=== PATIENT | male | born 1970 | race Caucasian/White ===

== ENCOUNTER → 2020-10-30 16:51 | Outpatient (CLI) | payer OTHER, SELFPAY ==
[2020-10-30 18:16] LABS: PSA,Total - Annual Screen 0.61 ng/mL (0.00-4.00)
== END ==
PROVIDERS: PCP Family Medicine; Referring Provider Family Medicine; Visit Provider Family Medicine
DX: R35.0 Frequency of micturition (principal)
CPT/HCPCS: 36415; 84153; G0103

== ENCOUNTER → 2021-08-26 16:49 | Outpatient (CLI) | payer OTHER, SELFPAY ==
--- NOTE | 2021-08-26 16:58 | RAD_ITS ---
STUDY: X-RAY - LUMBAR SPINE REASON FOR EXAM: Male, 50 years old. Low back pain TECHNIQUE: 5 view(s) of the lumbar spine were obtained. COMPARISON: None FINDINGS: Normal lumbar lordosis. There is a mild dextroscoliosis of the lumbar spine. There is a normal alignment of the vertebrae in the lateral view. There is multilevel endplate spondylosis of the lumbar vertebrae. There is multi-level degenerative disc disease with multi-level disc space narrowing. There is no demonstrated fracture. The soft tissue structures are unremarkable. RAD/L/S Spine Min 4 Views IMPRESSION: Degenerative changes of the spine, as detailed above. No demonstrated fracture Mild right dextroscoliosis Electronically Signed: Mariano Desouza MD at 17:54 EDT , Service support ,
== END ==
PROVIDERS: PCP Family Medicine; Referring Provider Chiropractor; Visit Provider Chiropractor
DX: S39.012A Strain of muscle, fascia and tendon of lower back, initial encounter (principal); X58.XXXA Exposure to other specified factors, initial encounter; M47.816 Spondylosis without myelopathy or radiculopathy, lumbar region
CPT/HCPCS: 72110

== ENCOUNTER 2023-03-27 07:59 | Day surgery (SDC) | payer OTHER, SELFPAY ==
[2023-03-27 08:27] VITALS: BP 121/68; PULSE 66; RESP 18; TEMP 37.2; O2SAT 98; BMI 28.0
[2023-03-27] MEDS: Lactated Ringers 1,000 ML 15 ML IV (08:34)
--- NOTE | 2023-03-27 08:46 | PCM.HP.STD ---
[facility] - General General Date of Service: 03/27/23 Chief Complaint: Screening for intestinal cancer HPI Narrative SHYLA MARTIN, is a 52 M who presents who presents for screening colonoscopy today. He has not had a previous one. He is asymptomatic. No family history of colon cancer. He otherwise enjoys good health. No bright red blood per rectum or melena. [facility] Medical History (Updated 03/23/23 @ 14:23 by Mica Jay) Back pain History of pain when walking History of trigger finger Non-smoker Wears contact lenses Home Medications cholecalciferol (vitamin D3) 125 mcg (5,000 unit) capsule 125 mcg PO DAILY 01/30/23 [History Last Taken Unknown] multivitamin 1 tab PO DAILY 01/30/23 [History Last Taken Unknown] ascorbic acid (vitamin C) 500 mg tablet (Vitamin C) 500 mg PO DAILY 03/23/23 [History Last Taken Unknown] Allergy/AdvReac Type Severity Reaction Status Date / Time No Known Allergies Allergy Unverified 03/27/23 08:26 Surgical History (Updated 03/23/23 @ 14:23 by Mica Jay) History of carpal tunnel surgery of left wrist History of carpal tunnel surgery of right wrist Social History (Updated 01/30/23 @ 11:14 by Gisselle Lombardi) household members: spouse current occupational status: employed Smoking Status: Never smoker ROS Constitutional Constitutional: Reports systems reviewed and no addt'l complaints, except as documented Cardiovascular Cardiovascular: Denies chest pain Respiratory/Chest Respiratory/Chest: Denies shortness of breath at rest Gastrointestinal Gastrointestinal: Denies abdominal pain, change in bowel habits, hematochezia or melena Vital Signs Vital Signs Vital Signs: 03/27/23 08:27 03/27/23 08:27 Temperature 98.9 F Temperature Source Temporal Pulse Rate 66 Respiratory Rate 18 Respiratory Pattern Normal Blood Pressure 121/68 H Blood Pressure Mean 85 Blood Pressure Source Monitor Blood Pressure Position Semi-Fowlers Blood Pressure Location Right Arm Pulse Ox 98 Oxygen Delivery Method Room Air Weight Weight: 224 lb 10.417 oz Body Mass Index (BMI) 28.0 Physical Exam Const alert, oriented x3 and no apparent distress General Appearance: cooperative and comfortable Eyes General Eye: normal appearance of both eyes Neck General: normal visual inspection Chest inspection of chest normal Resp Effort and Inspection: able to speak in complete sentences and symmetric chest movement Auscultation: clear to auscultation bilaterally Cardio regular rate and regular rhythm GI soft to palpation, non-tender and non-distended Extremity no calf tenderness Neuro oriented x3 Psych thought process normal Assessment & Plan Assessment/Plan (1) Encounter for screening for malignant neoplasm of colon: PLAN: The patient presents for screening colonoscopy today. Presents via open access. He is aware of the technique, benefit, risk, alternatives. He has had an opportunity to ask and have questions answered. We will proceed as noted. Carroll Thakur M.D., F.A.C.S.
[2023-03-27 10:30] VITALS: BP 119/74; BP 121/68; PULSE 61; RESP 16; TEMP 36.9; O2SAT 97
--- NOTE | 2023-03-27 10:31 | OP.COLON_ITS ---
Patient Name: Luisito Davis Procedure Date: 03/27/2023 10:03 AM Date of : 1970 Age: 52 Procedure: Colonoscopy Indications: Screening for colorectal malignant neoplasm Providers: Carroll Thakur MD Medicines: See the Anesthesia note for documentation of the administered medications Patient Profile: Last Colonoscopy: none. The patient's first colonoscopy is today. Complications: No immediate complications. Procedure: Pre-Anesthesia Assessment: - Prior to the procedure, a History and Physical was performed, and patient medications and allergies were reviewed. The patient's tolerance of previous anesthesia was also reviewed. The risks and benefits of the procedure and the sedation options and risks were discussed with the patient. All questions were answered, and informed consent was obtained. Prior Anticoagulants: The patient has taken no previous anticoagulant or antiplatelet agents. ASA Grade Assessment: II - A patient with mild systemic disease. After reviewing the risks and benefits, the patient was deemed in satisfactory condition to undergo the procedure. After I obtained informed consent, the scope was passed under direct vision. Throughout the procedure, the patient's blood pressure, pulse, and oxygen saturations were monitored continuously. The Colonoscope was introduced through the anus and advanced to the cecum, identified by appendiceal orifice and ileocecal valve. The colonoscopy was performed without difficulty. The patient tolerated the procedure well. The quality of the bowel preparation was good. The ileocecal valve and the appendiceal orifice were photographed. Scope In: 10:10:47 AM Scope Withdrawal Time 0 hours 10 minutes 6 seconds Scope Out: 10:26:28 AM Total Procedure Duration Time 0 hours 15 minutes 41 seconds Findings: The digital rectal exam findings include thrombosed external hemorrhoids, non-thrombosed internal hemorrhoids and internal hemorrhoids that prolapse with straining, but spontaneously regress to the resting position (Grade II). Pertinent negatives include normal prostate (size, shape, and consistency). Multiple diverticula were found in the sigmoid colon. The exam was otherwise without abnormality. Impression: - Thrombosed external hemorrhoids, non-thrombosed internal hemorrhoids and internal hemorrhoids that prolapse with straining, but spontaneously regress to the resting position (Grade II) found on digital rectal exam. - Diverticulosis in the sigmoid colon. - The examination was otherwise normal. - No specimens collected. Recommendation: - Discharge patient to home. - Resume previous diet. - Continue present medications. - Repeat colonoscopy in 10 years for screening purposes. Procedure Code(s): --- Professional --- 74371, Colonoscopy, flexible; diagnostic, including collection of specimen(s) by brushing or washing, when performed (separate procedure) Diagnosis Code(s): --- Professional --- Z12.11, Encounter for screening for malignant neoplasm of colon K64.1, Second degree hemorrhoids K64.5, Perianal venous thrombosis K57.30, Diverticulosis of large intestine without perforation or abscess without bleeding CPT copyright 2017 [employer]. All rights reserved. The codes documented in this report are preliminary and upon flower buncher or picker review may be revised to meet current compliance requirements. Carroll Thakur MD 03/27/2023 10:30:57 AM This report has been signed electronically. Number of Addenda: 0 Note Initiated On: 03/27/2023 10:03 AM
--- NOTE | 2023-03-27 10:31 | OP.CCLET_ITS ---
03/27/2023 Ivan[address] [place] [address] Re : Colonoscopy procedure for Luisito Ryan Dear Dr. Gunn This procedure was performed on Monday, March 27, 2023. My impressions and recommendations are as follows: Impressions : - Thrombosed external hemorrhoids, non-thrombosed internal hemorrhoids and internal hemorrhoids that prolapse with straining, but spontaneously regress to the resting position (Grade II) found on digital rectal exam. - Diverticulosis in the sigmoid colon. - The examination was otherwise normal. - No specimens collected. Recommendations : - Discharge patient to home. - Resume previous diet. - Continue present medications. - Repeat colonoscopy in 10 years for screening purposes. My findings are described in the full procedure note, which is enclosed. If I can be of further assistance, please feel free to contact me at Doctor phone number(s): Work: . Sincerely, Carroll Thakur MD 03/27/2023 10:30:57 AM This report has been signed electronically.
[2023-03-27 10:35] VITALS: BP 116/66; BP 121/68; PULSE 66; RESP 16; O2SAT 96
[2023-03-27 10:40] VITALS: BP 111/84; BP 121/68; PULSE 63; RESP 16; O2SAT 96
[2023-03-27 10:45] VITALS: BP 120/71; BP 121/68; PULSE 58; RESP 16; TEMP 36.6; O2SAT 96
[2023-03-27 11:00] VITALS: BP 121/68
== END 2023-03-27 11:20 | disposition home or self-care (01) ==
LOC: EN 08:02 → AC 08:02
PROVIDERS: PCP Family Medicine; Referring Provider Family Medicine; Visit Provider Surgery
PROC: 0DJD8ZZ Inspection of Lower Intestinal Tract, Via Natural or Artificial Opening Endoscopic (ICD-10-PCS; CPT 45378; principal; 2023-03-27 09:10)
DX: Z12.11 Encounter for screening for malignant neoplasm of colon (principal); K57.30 Diverticulosis of large intestine without perforation or abscess without bleeding; K64.5 Perianal venous thrombosis; K64.1 Second degree hemorrhoids
CPT/HCPCS: 45378; J7120; J2405